=== PATIENT | male | born 1965 | race African-American/Black ===

== ENCOUNTER 2024-08-14 02:11 | Inpatient (IN) | payer BC, MEDICAID ==
[2024-08-14] VITALS (9 sets, daily range): BP systolic 140–147; BP diastolic 87–89; PULSE 65–91; RESP 18–22; TEMP 97.8–98.1; O2SAT 96–98
[~2024-08-14] VITALS: Ht 177.8 cm; Wt 96.8 kg
--- NOTE | 2024-08-14 02:48 | ED.PDOC ---
HPI Comments 58-year-old male came ER for chest pains. Patient has history of hypertension and diabetes. States he has been having intermittent episodes of headaches for the past few days, accompanied by fluctuating blood pressure levels. 30 minutes prior to arrival, she started having left sided chest pains, pressure, radiating to his left arm. With his blood pressure was elevated at 175/106 mm Hg, to the emergency room. Upon arrival blood pressure went down to 155/85 mmHg Chief Complaint: Chest Pain Time Seen by MD: 02:46 Reviewed Notes: Nurses Notes Allergies: Coded Allergies: No Known Drug Allergy (Verified Allergy, Unknown, 08/14/24) Information Source: Patient Mode of Arrival: Ambulatory Severity: Moderate Timing: Days Duration: Intermittent Prehospital treatment: None Location: Chest (L) Radiation: Arm (L) Quality: Pressure Onset: With Light Exertion Cardiac Risk Factors: HTN, Diabetes PE Risk Factors: None History of: Similar pain in past Associated Signs and Symptoms: Other (headaches) Vital Signs Vital Signs Date Time Temp Pulse Resp B/P (MAP) Pulse Ox O2 Delivery O2 Flow Rate FiO2 08/14/24 05:37 97.8 73 14 139/91 (107) 97 97.8 08/14/24 05:37 Room Air* 0 21 Physical Exam General: Awake, alert and oriented. No acute distress. Skin: Skin in warm, dry and intact. Appropriate color for ethnicity. Nailbeds pink with no cyanosis. HEENT: The head is normocephalic and atraumatic. Conjunctivae are clear without exudates or hemorrhage. Sclera is non-icteric. EOM are intact. No signs of n ystagmus. Eyelids are normal in appearance without swelling or lesions. Oral mucosa is pink and moist Neck: The neck is supple with normal range of motion. No JVD. Cardiac: Heart rate and rhythm are normal. No murmurs, gallops, or rubs are auscultated. Radial pulses equal bilaterally. Respiratory: No signs of respiratory distress. Lung sounds are clear in all lobes bilaterally without rales, ronchi, or wheezes. Abdominal: Abdomen is soft, non-tender without distention. Bowel sounds are present and normoactive in all four quadrants. Extremities: Upper and lower extremities are atraumatic in appearance without deformity or edema. Right great toe erythematous and swollen. Neurological: The patient is awake, alert and oriented to person, place, and daphne e with normal speech. Speech is clear. There is no facial asymmetry. Psychiatric: Appropriate mood and affect. Good judgement and insight. No visual or auditory hallucinations. Review of Systems REVIEW OF SYSTEMS: No fever, no chills, or fatigue HEENT: No sore throat, no earache, no congestion, no neck pain. Cardiac: (+) chest pain. No palpitations. Lungs: No shortness of breath, no cough. GI: No nausea, no vomiting, no diarrhea, no constipation, no abdominal pain : No dysuria, frequency, or urgency. No hematuria. Musculoskeletal: No joint pain , no joint swelling, no extremity edema. Skin: No rash, no itching. Neuro: No headache, no dizziness, no weakness Past Medical History PAST MEDICAL HISTORY: DM, HTN Surgical History: Denies all surgeries Family History Family History: Reviewed,noncontributory to illness Social History Smoker: Non-Smoker Alcohol: Denies ETOH Use Drugs: Denies Drug Use Lives In: Home Was a procedure done? Was a procedure done?: No CP Differential Dx Differential Diagnosis: Angina, Anxiety / Panic Attack Differential Diagnosis: Angina, Chest Wall Pain, Costochondritis, Esophageal reflux/spasm, Gastritis, Myocardial Infarction X-Ray, Labs, Meds, VS Vital Signs Date Time Temp Pulse Resp B/P (MAP) Pulse Ox O2 Delivery O2 Flow Rate FiO2 08/14/24 05:37 97.8 73 14 139/91 (107) 97 97.8 08/14/24 05:37 97 Room Air* 0 21 08/14/24 04:57 98.7 78 16 134/91 (105) 98 98.7 08/14/24 03:02 97.8 87 18 158/85 (109) 97 97.8 08/14/24 03:02 87 18 97 Room Air 08/14/24 02:31 97.8 87 18 158/85 (109) 87 Lab Test 08/14/24 05:40 08/14/24 03:35 08/14/24 02:42 Range/Units Troponin I High Sensitivity Pending 95 *H 91 *H </=54 ng/L White Blood Count 4.5 4.4-10.8 10^3/uL Red Blood Count 4.80 4.5-5.90 10^6/uL Hemoglobin 14.3 13.5-17.5 g/dL Hematocrit 42.7 41.0-53.0 % Mean Corpuscular Volume 89.0 80.0-100.0 fL Mean Corpuscular Hemoglobin 29.8 28.0-32.0 pg Mean Corpuscular Hemoglobin Concent 33.4 32.0-36.0 g/dL Red Cell Distribution Width 15.7 H 11.8-14.3 % Platelet Count 210 140-450 10^3/uL Mean Platelet Volume 10.1 6.9-10.8 fL Neutrophils (%) (Auto) 44.1 37.0-80.0 % Lymphocytes (%) (Auto) 38.5 10.0-50.0 % Monocytes (%) (Auto) 10.1 0.0-12.0 % Eosinophils (%) (Auto) 6.4 0.0-7.0 % Basophils (%) (Auto) 0.9 0.0-2.0 % Neutrophils # (Auto) 2.0 1.6-8.6 10 ^3/uL Lymphocytes # (Auto) 1.7 0.4-5.4 10 ^3/uL Monocytes # (Auto) 0.4 0-1.3 10 ^3/uL Eosinophils # (Auto) 0.3 0-0.8 10 ^3/uL Basophils # (Auto) 0 0-0.2 10 ^3/uL Nucleated Red Blood Cells 0.1 % Sodium Level 137 136-145 mmol/L Potassium Level 3.7 3.5-5.1 mmol/L Chloride Level 104 98-107 mmol/L Carbon Dioxide Level 28 20-31 mmol/L Anion Gap 5 5-15 Blood Urea Nitrogen 19 9-23 mg/dL Creatinine 1.63 H 0.700-1.30 mg/dL Glomerular Filtration Rate Calc 48 >90 mL/min BUN/Creatinine Ratio 11.7 10.0-20.0 Serum Glucose 121 H 74-106 mg/dL Calcium Level 9.8 8.7-10.4 mg/dL Total Bilirubin 0.4 0.2-1.0 mg/dL Aspartate Amino Transferase (AST) 25 13-40 U/L Alanine Aminotransferase (ALT) 23 7-40 U/L Alkaline Phosphatase 135 H 46-116 U/L Total Protein 7.9 5.7-8.2 g/dL Albumin 4.6 3.2-4.8 g/dL Current Medications Medications (Trade) Dose Ordered Sig/Natalie Route Start Time Stop Time Status Last Admin Ceftriaxone Sodium 50 ml @ 100 mls/hr ONCE ONCE IV 08/14/24 05:15 08/14/24 05:44 DC 08/14/24 05:22 Time of 1ST Reevaluation: 02:39 Reevaluation 1ST: Unchanged Patient Education/Counseling: Diagnosis, Treatment Family Education/Counseling: No Family Present Departure 1 Departure Time of Disposition: 05:53 Impression: Primary Impression: Chest pain Additional Impressions: Elevated troponin Cellulitis of right foot Disposition: ADMITTED INPATIENT Condition: Stable Comments 58-year-old male who presents to the emergency department with chest pain. At troponin mildly elevated. Patient has a history of diabetes, right great toe cellulitis noted. Antibiotics initiated. Patient admitted for further treatment, evaluation and monitoring. Extensive evaluation was performed in attempt to identify or rule out: (See differential diagnosis section) The following tests were ordered, and results were reviewed by me: (See diagnostic results section) The following test were independently interpreted by me: EKG, foot x-ray I reviewed and agreed with the following test results read by other providers: Foot x-ray I reviewed the following notes from the pt's past medical encounters: (None available at this time) Additional information was gathered from interviewing the following independent historians: N/A Discussion of management or test interpretation with external physician/other qualified health palliative care nurse: N/A Addressed an acute or chronic illness that poses a threat to life or bodily function: Chest pain Decision regarding hospitalization or escalation of hospital level of care: Risk and benefits of admission for further treatment of patient's condition was considered. Due to patient's current clinical condition, high risk of decline and poor outcome if discharged and need for further inpatient management and monitoring, patient will be admitted to the hospital. Critical Care Note Critical Care Time?: No Stability Stability form required: No Heart Score Heart Score: Heart Score Response (Comments) Value History Moderate Suspicious 1 EKG Repolarization Disturb 1 Age >65 2 Risk Factors 1 or 2 risk factors 1 Troponin >3 x's Normal limit 2 Total 7 I personally scribed for ABIMBOLA LUJAN MD ([email or web address]) on 08/14/24 at 02:48. Electronically submitted by David Glover ([facility]). I personally scribed for ABIMBOLA LUJAN MD ([email or web address]) on 08/14/24 at 05:26. Electronically submitted by David Glover ([email or web address]). ABIMBOLA LUJAN MD Aug 14, 2024 02:48
[2024-08-14 03:26] LABS: Alanine Aminotransferase 23 U/L (7-40); Albumin 4.6 g/dL (3.2-4.8); Anion Gap 5 (5-15); Aspartate Aminotransferase 25 U/L (13-40); BUN/Creatinine Ratio 11.7 (10.0-20.0); Bilirubin, Total 0.4 mg/dL (0.2-1.0); Blood Urea Nitrogen 19 mg/dL (9-23); Calcium 9.8 mg/dL (8.7-10.4); Carbon Dioxide 28 mmol/L (20-31); Chloride 104 mmol/L (98-107); Potassium 3.7 mmol/L (3.5-5.1); Sodium 137 mmol/L (136-145); Total Protein 7.9 g/dL (5.7-8.2)
[2024-08-14 03:29] LABS: Alkaline Phosphatase 135 U/L (46-116); Glucose 121 mg/dL (74-106)
[2024-08-14 03:32] LABS: Basophils # (auto) 0 10 ^3/uL (0-0.2); Basophils % (auto) 0.9 % (0.0-2.0); Eosinophils # (auto) 0.3 10 ^3/uL (0-0.8); Eosinophils % (auto) 6.4 % (0.0-7.0); Hematocrit 42.7 % (41.0-53.0); Hemoglobin 14.3 g/dL (13.5-17.5); Lymphocytes # (auto) 1.7 10 ^3/uL (0.4-5.4); Lymphocytes % (auto) 38.5 % (10.0-50.0); Mean Corpuscular Hemoglobin 29.8 pg (28.0-32.0); Mean Corpuscular Hgb Conc. 33.4 g/dL (32.0-36.0); Monocytes # (auto) 0.4 10 ^3/uL (0-1.3); Monocytes % (auto) 10.1 % (0.0-12.0); Neutrophils % (auto) 44.1 % (37.0-80.0); Nucleated Red Blood Cells % 0.1 %; Platelet Count (auto) 210 10^3/uL (140-450); Red Cell Distribution Width 15.7 % (11.8-14.3); White Blood Cell 4.5 10^3/uL (4.4-10.8)
[2024-08-14] MEDS: IOHEXOL 350 MG/ML 100ML IJ ONE (03:36)
--- NOTE | 2024-08-14 03:59 | DVH ---
Examination: RTOE1 CLINICAL INDICATION: Redness, swelling. COMPARISON: None. TECHNIQUE: Ap and lateral views of right foot were performed. FINDINGS: The bones forming the tibiotalar, talonavicular, calcaneocuboidal, subtarsal, inter-tarsal, tarsometa tarsal and metatarsophalangeal joints reveal normal alignment. Bones reveal normal density. No focal lytic or sclerotic lesion is detected in the visualized bones. There is no evidence of fracture or dislocation There is no abnormal periosteal reaction or soft tissue component. IMPRESSION: No significant abnormality is detected. Electronically Signed 08/14/2024 03:57 Eddie Oliveros
--- NOTE | 2024-08-14 04:32 | DVH ---
INDICATION: Chest Pain r/o aortic dissection TECHNIQUE: Multidetector CTA of the chest was performed of the chest with 100 cc of intravenous contr ast. Aortic dissection protocol was utilized using a bolus-tracking Axial, coronal and sagittal mult iplanar and MIP reformats were performed. Radiation Dose Information: CT Dose: Dose-length product is 1912.6 mGy*cm Comparison: None The dose indicators for CT are the volume Computed Tomography (CT) Dose Index (CTDIvol) and the Dose Length Product (DLP), and are measured in units of mGy and mGy-cm, respectively. These indicators are not patient dose, but values generated from the CT scanner acquisition factors. The report includes radiation exposure data for exposures received during this examination. Findings: The thoracic aorta appears normal in caliber and contour. No evidence of a dissection flap or aneurys mal dilatation. The airway appears patent. No mediastinal or hilar adenopathy. No pericardial or pleu ral effusion. The lungs appear clear. Visualized portions of the upper abdomen appear unremarkable. There is a right renal cyst. Small hi atal hernia. No suspicious osseous lesion. IMPRESSION: 1. No evidence of aortic dissection or acute finding. 2. Small hiatal hernia.
[2024-08-14] MEDS: cefTRIAXone 1GM/50ML D5W 50 ML IV ONE (05:22)
--- NOTE | 2024-08-14 07:06 | ECG ---
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
--- NOTE | 2024-08-14 07:23 | DVHHP2 ---
History of Present Illness Reason for Visit: Chest pain History of Present Illness Devon Moctezuma is a 58-year-old male with past medical history of hypertension, diabetes, and hernia repair who presents to the ED with chest, right arm numbness, and increased blood pressure x2 weeks. Patient reports that his medications is not helping him bring down his blood pressure. He also reports right arm numbness, left muscles were itching, and chest pain 3/10 that is intermittent and sharp radiates to his back in between his scapula. Patient reports that there are no aggravating or relieving factors. Patient also denies any recent sick contacts or recent travels. Patient also reports Patient reports that he is compliant with his medications. Patient denies smoking, drinking, and illicit drug use. Patient also denies shortness of breath, abdominal pain, nausea, vomiting, diarrhea, lightheadedness, dizziness, and weakness. Cardiovascular: HTN Endocrine: Diabetes Past Surgical History: Hernia Repair Family History: Cancer, Other (Mom with liver cancer Mets to the lung currently ) Smoke: No ALCOHOL: none Drugs: None Lives: Alone Domestic Violence: Neg Review of Systems Constitutional: No: Fever, Chills, Sweats, Weakness, Malaise, Other Eyes: No: Pain, Vision change, Conjunctivae inflammation, Eyelid inflammation, Other, Redness ENT: No: Ear pain, Ear discharge, Nose pain, Nose discharge, Nose congestion, Mouth pain, Mouth swelling, Throat pain, Throat swelling, Other Respiratory: No: Cough, Dry, Shortness of breath, SOB with excertion, Wheezing, Hemoptysis, Pleuritic Pain, Sputum, Wheezing, Other Cardiovascular: Chest Pain; No: Palpitations, Orthopnea, Paroxysmal Noc. Dyspnea, Edema, Lt Headedness, Other Gastrointestinal: No: Nausea, Vomiting, Abdominal Pain, Diarrhea, Constipation, Melena, Hematochezia, Other Genitourinary: No Dysuria, No Frequency, No Incontinence, No Hematuria, No Retention, No Other Musculoskeletal: other (Right arm numbness and left arm muscle twitching), arm pain; No: neck pain, shoulder pain, back pain, hand pain, leg pain, foot pain Skin: No: Rash, Lesions, Jaundice, Bruising, Other Neurological: No: Weakness, Numbness, Incoordination, Change in speech, Confusion, Seizures, Other Allergies: Coded Allergies: No Known Drug Allergy (Verified Allergy, Unknown, 08/14/24) Exam Vital Signs Vital Signs Date Time Temp Pulse Resp B/P (MAP) Pulse Ox O2 Delivery O2 Flow Rate FiO2 08/14/24 07:00 78 17 138/81 (100) 97 08/14/24 05:37 97.8 97.8 08/14/24 05:37 Room Air* 0 21 General Appearance: Alert, Oriented X3, Cooperative, No acute distress HEENT: Atraumatic, PERRLA, EOMI, Mucous membr. moist/pink Respiratory: Clear to auscultation, Normal air movement Cardiovascular: Regular rate, Normal S1, Normal S2, No murmurs Abdominal: Normal bowel sounds, Soft, No tenderness, No hepatospenomegaly Extremities: No cyanosis, Normal pulses Skin: No significant lesion Neuro: Normal gait, Normal speech, Strength at 5/5 X4 ext, Normal tone, Sensation intact Psych/Mental Status: Mental status NL, Mood NL Labs/Xrays Labs Test 08/14/24 05:40 08/14/24 02:42 Range/Units Troponin I High Sensitivity 92 *H </=54 ng/L White Blood Count 4.5 4.4-10.8 10^3/uL Red Blood Count 4.80 4.5-5.90 10^6/uL Hemoglobin 14.3 13.5-17.5 g/dL Hematocrit 42.7 41.0-53.0 % Mean Corpuscular Volume 89.0 80.0-100.0 fL Mean Corpuscular Hemoglobin 29.8 28.0-32.0 pg Mean Corpuscular Hemoglobin Concent 33.4 32.0-36.0 g/dL Red Cell Distribution Width 15.7 H 11.8-14.3 % Platelet Count 210 140-450 10^3/uL Mean Platelet Volume 10.1 6.9-10.8 fL Neutrophils (%) (Auto) 44.1 37.0-80.0 % Lymphocytes (%) (Auto) 38.5 10.0-50.0 % Monocytes (%) (Auto) 10.1 0.0-12.0 % Eosinophils (%) (Auto) 6.4 0.0-7.0 % Basophils (%) (Auto) 0.9 0.0-2.0 % Neutrophils # (Auto) 2.0 1.6-8.6 10 ^3/uL Lymphocytes # (Auto) 1.7 0.4-5.4 10 ^3/uL Monocytes # (Auto) 0.4 0-1.3 10 ^3/uL Eosinophils # (Auto) 0.3 0-0.8 10 ^3/uL Basophils # (Auto) 0 0-0.2 10 ^3/uL Nucleated Red Blood Cells 0.1 % Sodium Level 137 136-145 mmol/L Potassium Level 3.7 3.5-5.1 mmol/L Chloride Level 104 98-107 mmol/L Carbon Dioxide Level 28 20-31 mmol/L Anion Gap 5 5-15 Blood Urea Nitrogen 19 9-23 mg/dL Creatinine 1.63 H 0.700-1.30 mg/dL Glomerular Filtration Rate Calc 48 >90 mL/min BUN/Creatinine Ratio 11.7 10.0-20.0 Serum Glucose 121 H 74-106 mg/dL Calcium Level 9.8 8.7-10.4 mg/dL Total Bilirubin 0.4 0.2-1.0 mg/dL Aspartate Amino Transferase (AST) 25 13-40 U/L Alanine Aminotransferase (ALT) 23 7-40 U/L Alkaline Phosphatase 135 H 46-116 U/L Total Protein 7.9 5.7-8.2 g/dL Albumin 4.6 3.2-4.8 g/dL Examination: RTOE1 CLINICAL INDICATION: Redness, swelling. COMPARISON: None. TECHNIQUE: Ap and lateral views of right foot were performed. FINDINGS: The bones forming the tibiotalar, talonavicular, calcaneocuboidal, subtarsal, inter-tarsal, tarsometatarsal and metatarsophalangeal joints reveal normal alignment. Bones reveal normal density. No focal lytic or sclerotic lesion is detected in the visualized bones. There is no evidence of fracture or dislocation There is no abnormal periosteal reaction or soft tissue component. IMPRESSION: No significant abnormality is detected. INDICATION: Chest Pain r/o aortic dissection TECHNIQUE: Multidetector CTA of the chest was performed of the chest with 100 cc of intravenous contrast. Aortic dissection protocol was utilized using a bolus- tracking Axial, coronal and sagittal multiplanar and MIP reformats were performed. Radiation Dose Information: CT Dose: Dose-length product is 1912.6 mGy*cm Comparison: None The dose indicators for CT are the volume Computed Tomography (CT) Dose Index (CTDIvol) and the Dose Length Product (DLP), and are measured in units of mGy and mGy-cm, respectively. These indicators are not patient dose, but values generated from the CT scanner acquisition factors. The report includes radiation exposure data for exposures received during this examination. Findings: The thoracic aorta appears normal in caliber and contour. No evidence of a dissection flap or aneurysmal dilatation. The airway appears patent. No mediastinal or hilar adenopathy. No pericardial or pleural effusion. The lungs appear clear. Visualized portions of the upper abdomen appear unremarkable. There is a right renal cyst. Small hiatal hernia. No suspicious osseous lesion. IMPRESSION: 1. No evidence of aortic dissection or acute finding. 2. Small hiatal hernia. Assessment/Plan Assessment/Plan Assessment/Plan: Atypical chest pain r/o ACS JOSE on CKD 3 Right toe cellulitis ACS protocol Aspirin Statin GIANFRANCO UA CT A angio IV antibiotics-ceftriaxone Right toe x-ray EKG Troponins elevated Lipid TSH UDS Echo ordered Cardiology consult IV fluids Labs A.m. labs EKG a.m. Diabetes Hemoglobin A1c ISS and Accu-Cheks Chronic hypertension Continue home medications Small hiatal hernia Follow up outpatient with PCP FEN/PPX cardiac diet IV fluids DVT prophylaxis not indicated patient ambulating PUD prophylaxis not indicated patient no history of GERD or GI bleed Home medications reconciled discussed plan of care with patient and nurse Admit to tele Plan discussed with: Patient My Orders Orders - SERA SALINAS Procedure Category Date Status Time Ceftriaxone Ivpb PHA 08/14/24 Verified Rocephin 09:00 Admit ADMIT 08/14/24 Verified 07:17 Code Status CODE 08/14/24 Verified 07:17 Vital Signs SATYA 08/14/24 Verified 07:17 Cardiac DIET 08/14/24 Verified Diet-2gna,Lofat,Lochol Breakfast 0.9%Ns 1000 Ml PHA 08/14/24 Verified 07:30 Aspirin Tablet PHA 08/14/24 Verified 10:00 Date of Service: Aug 14, 2024 Billing Provider: SERA SALINAS Common Visit Codes: 38024-EYGUSDY INP/OBS CARE (HIGH) SERA SALINAS Aug 14, 2024 07:23
[2024-08-14] MEDS ORDERED: MORPHINE SULFATE INJ 2 MG/ml SYRG IV PRN (07:30)
[2024-08-14] MEDS ORDERED: NITROGLYCERIN 0.4 MG SL TAB SL PRN (07:30)
[2024-08-14] MEDS ORDERED: ONDANSETRON HCL 4 MG/2 ML VIAL IV PRN (07:30)
[2024-08-14] MEDS: SODIUM CHLORIDE 0.9% 1,000 ML IV SCH (07:45)
[2024-08-14] MEDS ORDERED: DEXTROSE (50%) 50ML SYRG IV PRN (08:30)
[2024-08-14 08:40] LABS: Amphetamine Screen, Urine Neg (NEGATIVE); Barbiturate Scree,Urine Neg (NEGATIVE); Benzodiazephine Screen, Urine Neg (NEGATIVE); Cannabinoid Screen, Urine Neg (NEGATIVE); Cocaine Screen, Urine Neg (NEGATIVE); Opiate Scree,Urine Neg (NEGATIVE); Phencyclidine Screen, Urine Neg (NEGATIVE)
[2024-08-14] MEDS: ASPirin 81 mg TAB PO SCH (10:11)
[2024-08-14] MEDS: InsuLIN REG 1unit/0.01ml Soln (100units/ml) SC SCH (11:30)
[2024-08-14] MEDS: ACCU-CHEK COMFORT CURVE STRIP VI SCH (11:40)
[2024-08-14] MEDS ORDERED: LATA0.008 EACHEYE (14:18)
[2024-08-14] MEDS ORDERED: KETO2CRE4 TOP (14:18)
[2024-08-14] MEDS ORDERED: CHLO50TA PO (14:18)
[2024-08-14] MEDS ORDERED: LOSA-535 PO (14:18)
[2024-08-14] MEDS ORDERED: FINE10TA PO (14:18)
[2024-08-14] MEDS ORDERED: METF-370 PO (14:18)
[2024-08-14] MEDS ORDERED: FENO67CA16 PO (14:18)
[2024-08-14] MEDS ORDERED: FLUT50SP NAS (14:18)
[2024-08-14] MEDS ORDERED: NAP500T PO (14:18)
[2024-08-14] MEDS ORDERED: AMLO1TAB23 PO (14:18)
[2024-08-14] MEDS ORDERED: GLUC1TES SC (14:18)
[2024-08-14] MEDS ORDERED: GABA-1250 PO (14:18)
[2024-08-14] MEDS ORDERED: ATOR20TA50 PO (14:18)
[2024-08-14] MEDS ORDERED: [UNRECOGNIZED DRUG - SUPPLY] SC (14:18)
[2024-08-14] MEDS ORDERED: ASPI81CH49 PO (14:18)
[2024-08-14] MEDS ORDERED: CARV3.1240 PO (14:18)
--- NOTE | 2024-08-14 21:09 | DVHSR ---
APPROVED REPORT EXAM: Two-dimensional and M-mode echocardiogram with Doppler and color Doppler. Blood Pressure: 138/81 mmHg INDICATION Chest Pain RISK FACTORS Height: 5'10, Weight: 215 DIMENSIONS LVDd3.9 (3.8-5.7cm)LA (2D)3.8 (1.9-4.0cm)Aortic Root3.4 (2.0-3.7cm) LVDs2.8 (2.5-4.0cm)LA (MM) (1.9-4.0cm)Aortic Cusp Exc1.9 (1.5-2.0cm) EF (%) 55.0 (55-70%)Rt. Atrium3.9 (1.9-4.0cm)Asc. Aorta3.2 cm IVSd1.0 (0.7-1.1cm)RV (D) (1.8-2.4cm) PWd1.1 (0.7-1.1cm) Mitral Valve MitralMitral Stenosis E wave0.71m/sMV Mean GR.mmHg A wave0.93m/sMV Peak GR.mmHg E/A ratio0.82D MVAcm2 DECEL [id number] 1/2 Timems Aortic Valve Aortic ValveAortic Stenosis V10.99m/Chris Mean GR.3mmHg V21.16m/Chris Peak GR.5mmHg LVOT Diameter2.1 (1.8-2.4cm)Doppler AVA2.95cm2 Pulmonic Valve V21.16m/s Tricuspid Valve TR Velocity2.49m/s [id number] Conclusion MODERATE DEGREE LVH AND MODERATE DEGREE LV DIASTOLIC DYSFUNCTION LV EJECTION FRACTION IS 65% NORMAL VALVES NORMAL RV FUNCTION NO EFFUSION RVSP IS NORMAL AND IS 28 MM OF HG
[2024-08-14] MEDS: ATORVASTATIN 20 MG TAB PO SCH (22:15)
[2024-08-15] VITALS (8 sets, daily range): BP systolic 122–150; BP diastolic 75–86; PULSE 64–73; RESP 14–22; TEMP 97.6–98.3; O2SAT 95–98
[2024-08-15] MEDS: ACETAMINOPHEN 325 MG TAB PO PRN (06:14)
--- NOTE | 2024-08-15 07:17 | ECG ---
[facility] Test Date: 2024-08-14 Test Time: 02:37:51 Pat Name: CHICHO WOLFE Department: ER Room: 0270T B Gender: M Rn Discharge: PH : 1965 Requested By: ABIMBOLA LUJAN Order Number: [id number] Reading MD: Vaughn Elena Measurements Intervals [place] Rate: 82 P: 50 UT: 246 QRS: -51 QRSD: 119 T: 90 QT: 362 QTc: 423 Interpretive Statements Sinus rhythm Prolonged UT interval Incomplete left bundle branch block Left ventricular hypertrophy ST elevation, consider inferior injury Electronically Signed On 08-22-2024 14:37:36 PST by Vaughn Elena Please click the below link to view image of tracing.
--- NOTE | 2024-08-15 07:17 | ECG ---
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
[2024-08-15] MEDS: cefTRIAXone 1GM/50ML D5W 50 ML IV SCH (09:33)
[2024-08-15 10:16] LABS: Basophils # (auto) 0 10 ^3/uL (0-0.2); Basophils % (auto) 0.4 % (0.0-2.0); Eosinophils # (auto) 0.3 10 ^3/uL (0-0.8); Eosinophils % (auto) 7.1 % (0.0-7.0); Hematocrit 44.7 % (41.0-53.0); Hemoglobin 14.8 g/dL (13.5-17.5); Lymphocytes # (auto) 1.5 10 ^3/uL (0.4-5.4); Lymphocytes % (auto) 30.9 % (10.0-50.0); Mean Corpuscular Hemoglobin 29.9 pg (28.0-32.0); Mean Corpuscular Hgb Conc. 33.1 g/dL (32.0-36.0); Mean Corpuscular Volume 90.2 fL (80.0-100.0); Monocytes # (auto) 0.5 10 ^3/uL (0-1.3); Monocytes % (auto) 10.8 % (0.0-12.0); Neutrophils # (auto) 2.4 10 ^3/uL (1.6-8.6); Neutrophils % (auto) 50.8 % (37.0-80.0); Platelet Count (auto) 205 10^3/uL (140-450); Red Blood Cells 4.95 10^6/uL (4.5-5.90); Red Cell Distribution Width 15.8 % (11.8-14.3); White Blood Cell 4.8 10^3/uL (4.4-10.8)
[2024-08-15 10:30] LABS: Alanine Aminotransferase 24 U/L (7-40); Albumin 4.4 g/dL (3.2-4.8); Alkaline Phosphatase 74 U/L (46-116); Anion Gap 6 (5-15); Aspartate Aminotransferase 20 U/L (13-40); BUN/Creatinine Ratio 8.5 (10.0-20.0); Bilirubin, Total 0.6 mg/dL (0.2-1.0); Blood Urea Nitrogen 14 mg/dL (9-23); Calcium 9.9 mg/dL (8.7-10.4); Carbon Dioxide 28 mmol/L (20-31); Chloride 106 mmol/L (98-107); Sodium 140 mmol/L (136-145)
[2024-08-15 10:31] LABS: Total Protein 7.7 g/dL (5.7-8.2)
[2024-08-15 10:34] LABS: Glucose 138 mg/dL (74-106); Potassium 3.5 mmol/L (3.5-5.1)
--- NOTE | 2024-08-15 12:53 | DVHPN2 ---
Subjective Patient denies any chest pain at this time. Reviewed: Care Plan, H&P, Labs, Medications Changes from previous H/P or p: No Changes General: Per HPI Eyes: No Pain, No Vision change, No Conjunctivae inflammation, No Eyelid inflammation, No Other, No Redness ENT: No Ear pain, No Ear discharge, No Nose pain, No Nose discharge, No Nose congestion, No Mouth pain, No Mouth swelling, No Throat pain, No Throat swelling, No Other Cardiovascular: Chest Pain; No Palpitations, No Orthopnea, No Paroxysmal Noc. Dyspnea, No Edema, No Lt Headedness, No Other Respiratory: No Cough, No Dry, No Shortness of breath, No SOB with excertion, No Wheezing, No Hemoptysis, No Pleuritic Pain, No Sputum, No Other Gastrointestinal: No Nausea, No Vomiting, No Abdominal Pain, No Diarrhea, No Constipation, No Melena, No Hematochezia, No Other Genitourinary: No Dysuria, No Frequency, No Incontinence, No Hematuria, No Retention, No Other Musculoskeletal: other (Right arm numbness and left arm muscle twitching); No neck pain, No shoulder pain; arm pain; No back pain, No hand pain, No leg pain, No foot pain Skin: No Rash, No Lesions, No Jaundice, No Bruising, No Other Objective Vitals Vital Signs Date Time Temp Pulse Resp B/P (MAP) Pulse Ox O2 Delivery O2 Flow Rate FiO2 08/15/24 12:36 98.3 64 16 140/75 (96) 96 98.3 08/15/24 08:00 Room Air* 0 21 Intake/Output Intake and Output 08/15/24 07:00 Intake Total 1822.5 ml Output Total 200 ml Balance 1622.5 ml Intake Oral 735 ml IV Total 1087.5 ml Output Urine Total 200 ml # Voids 5 # Bowel Movements 1 General Appearance: Alert, Oriented X3, Cooperative, No acute distress Cardiovascular: Normal S1, Normal S2 Abdomen: Normal bowel sounds, Soft, No tenderness Musculoskeletal: Normal sensory function, Normal motor function Neuro: Normal gait, Normal speech Psych/Mental Status: Mental status NL, Mood NL Medications Current Medications Medications Dose Ordered Sig/Natalie Route Start Time Stop Time Status Last Admin Dose Admin Sodium Chloride 1,000 ml @ 75 mls/hr [id number] IV 08/14/24 07:30 08/15/24 09:44 75 MLS/HR Aspirin 81 mg DAILY PO 08/14/24 10:00 08/15/24 09:44 81 MG Atorvastatin Calcium 40 mg HS PO 08/14/24 22:00 08/14/24 22:15 40 MG Acetaminophen 650 mg Q6HP PRN PO 08/14/24 07:30 08/15/24 06:14 650 MG Ondansetron HCl 4 mg Q4HP PRN IV 08/14/24 07:30 Nitroglycerin 0.4 mg Q5MINP PRN SL 08/14/24 07:30 Morphine Sulfate 2 mg Q30M PRN IV 08/14/24 07:30 Diagnostic Test (Pha) 1 strip ACHS 08/14/24 11:30 08/15/24 11:32 1 STRIP Insulin Human Regular ACHS SC 08/14/24 11:30 Dextrose 50 ml UD PRN IV 08/14/24 08:30 Metoprolol Succinate 25 mg DAILY PO 08/16/24 10:00 UNV Laboratory Results Laboratory Tests 08/15/24 09:37 Chemistry Test 08/15/24 09:37 Albumin 4.4 g/dL (3.2-4.8) Calcium Level 9.9 mg/dL (8.7-10.4) Total Protein 7.7 g/dL (5.7-8.2) LFT Test 08/15/24 09:37 Alanine Aminotransferase (ALT) 24 U/L (7-40) Alkaline Phosphatase 74 U/L (46-116) Aspartate Amino Transferase (AST) 20 U/L (13-40) Total Bilirubin 0.6 mg/dL (0.2-1.0) Labs and/or images reviewed: Labs reviewed by me, Image(s) reviewed by me Assessment/Plan Assessment/Plan Impression: -rule out acute coronary syndrome -diabetes mellitus -CKD stage IIIA -accelerated hypertension -obesity Plan: -given patient's chest pain that radiates to his arms, cardiology consultation will be placed. Troponins x3 were 90, equivocal. Echocardiogram reviewed. -regular insulin sliding scale -start ACS protocol with aspirin and beta cameron -patient reports having a stress test either in May or June of 2024. Results unknown. -further course of care per Cardiology recommendations Total time spent with patient discussing and formulating plan of care: 35 minutes. This medical document was created using an electronic medical record system with [employer] dictation system. Although this document has been carefully reviewed, there may still be some phonetic and typographical errors. These areas are purely typographical due to imperfections of the software programs, and do not reflect any compromise in the patient's medical care. Plan discussed with: Patient, Other (RN) My Orders Orders - REGINE PINON NP Procedure Category Date Status Time * Cardiology Consult CONS 08/15/24 Transmitted 11:49 Metoprolol Xl PHA 08/16/24 Logged Succinate (Toprol Xl) 10:00 Date of Service: Aug 15, 2024 Billing Provider: REGINE PINON NP Common Visit Codes: [id number] INP/OBS CARE(HIGH) REGINE PINON NP Aug 15, 2024 12:53
--- NOTE | 2024-08-15 13:31 | DVHINCON2 ---
Date Seen: Aug 15, 2024 Referring Physician Chele Reason for Consultation Chest Pain, Mild troponin elevation History of Present Illness 58-year-old male with PMH for HTN, HLD, diabetes , and CKD who presents to the hospital with chest pain and elevated blood pressure. Patient states he has been monitor his blood pressure and noted to be uncontrolled for last 2 weeks. Patient then started to have some and [place] with left-sided chest pain, sharp in nature, intermittent, associated with right arm numbness as well as feelings of pulsations down his left arm. Patient states at that time he checked his blood pressure and noted to be 176/88. Patient states that he recently underwent Ayaz stress test within last 2-3 months for which he was told it was normal. EKG reviewed shows normal sinus rhythm with no significant ST abnormalities. Upon evaluation in the ER patient noted to have blood pressure 158/85. Patient had troponins trending 91, 95, 92. CT chest done which was negative for any acute findings. Creatinine 1.65. Past Medical History HTN HLD Diabetes CKD Past Surgical History Denies previous cardiac surgeries Family History: Cerebrovascular accident (CVA) G8 FATHER FH: liver cancer G8 MOTHER Hypertension G8 FATHER Social History Denies alcohol, tobacco, or illicit drug use Allergies: Coded Allergies: No Known Drug Allergy (Verified Allergy, Unknown, 08/14/24) Home Meds Reported Medications Amlodipine Besylate (Amlodipine Besylate) 10 Mg Tab, 1 TAB PO DAILY 08/14/24 Aspirin (Aspirin) 81 Mg Chw, 1 TAB PO DAILY 08/14/24 Chlorthalidone (Chlorthalidone) 50 Mg Tab, 1 TAB PO DAILY 08/14/24 Carvedilol (Carvedilol) 3.125 Mg Tab, 1 TAB PO BID 08/14/24 Lancets (TRUEPLUS LANCETS 33G) 33 G Mis, SC DAILY for diabetes mellitus 08/14/24 Glucose Blood (True Metrix Self Monitori) 1 Elvie Elvie, STRIP SC DAILY for diabetes mellitus 08/14/24 Ketoconazole (Ketoconazole) 2 % Cre, 1 APPLIC TOP DAILY 08/14/24 Gabapentin (Gabapentin) 300 Mg Cap, 1 CAP PO DAILY 08/14/24 Losartan Potassium (Losartan Potassium) 100 Mg Tab, 1 TAB PO DAILY 08/14/24 Latanoprost (LATANOPROST) 0.005 % Iesha, 1 DROP EACHEYE 08/14/24 Fluticasone Propionate (Nasal) (Fluticasone Propionate) 50 Mcg/Act Spr, 1 SPRAY GUCCI DAILY 08/14/24 Finerenone (Kerendia) 10 Mg Tab, PO 08/14/24 Naproxen (NAPROSYN TABLET) 500 Mg Tb, PO 08/14/24 Atorvastatin Calcium (ATORVASTATIN CALCIUM) 20 Mg Tab, 1 TAB PO DAILY 08/14/24 Fenofibrate (Fenofibrate Micronized) 67 Mg Cap, 1 CAP PO DAILY 08/14/24 Metformin Hydrochloride (Metformin Hcl) 500 Mg Tab, 1 TAB PO BID 08/14/24 Current Medications Current Medications Medications (Trade) Dose Ordered Sig/Natalie Route PRN Reason Start Time Stop Time Status Last Admin Ceftriaxone Sodium 50 ml @ 100 mls/hr DAILY@09 IV 08/15/24 09:00 08/15/24 12:39 DC 08/15/24 09:33 Atorvastatin Calcium (Lipitor) 40 mg HS PO 08/14/24 22:00 08/14/24 22:15 Metoprolol Succinate (Toprol Xl) 25 mg DAILY PO 08/16/24 10:00 Review of Systems Constitutional: No: Fever, Chills, Sweats, Weakness, Malaise, Other Eyes: No: Pain, Vision change, Conjunctivae inflammation, Eyelid inflammation, Other, Redness ENT: No: Ear pain, Ear discharge, Nose pain, Nose discharge, Nose congestion, Mouth pain, Mouth swelling, Throat pain, Throat swelling, Other Respiratory: No: Cough, Dry, Shortness of breath, SOB with exertion, Wheezing, Hemoptysis, Pleuritic Pain, Sputum, Wheezing, Other Cardiovascular: ; No: Chest Pain Palpitations, Orthopnea, Paroxysmal Noc. Dyspnea, Edema, Lt Headedness, Other Gastrointestinal: No: Nausea, Vomiting, Abdominal Pain, Diarrhea, Constipation, Melena, Hematochezia, Other Genitourinary: No Dysuria, No Frequency, No Incontinence, No Hematuria, No Retention, No Other Musculoskeletal: neck pain; No: other, shoulder pain, arm pain, back pain, hand pain, leg pain, foot pain Skin: No: Rash, Lesions, Jaundice, Bruising, Other Neurological: Other (Dizziness, headache.); No: Weakness, Numbness, Incoordination, Change in speech, Confusion, Seizures Vital Signs Vital Signs Date Time Temp Pulse Resp B/P (MAP) Pulse Ox O2 Delivery O2 Flow Rate FiO2 08/15/24 12:36 98.3 64 16 140/75 (96) 96 98.3 08/15/24 08:00 Room Air* 0 21 Physical Exam General appearance: Patient is well-developed, well-nourished, in no acute distress. HEENT: Exam shows: Normocephalic, atraumatic, PERRLA, EOMI Neck: Supple, no bruits Chest: Equal chest excursion bilaterally. Breath sounds normal-no rales or wheezes. Heart: Rhythm: Regular rate; no murmur or gallop Abdomen: Exam shows: Soft, nontender, nondistended Musculoskeletal: No clubbing, no cyanosis, no lower extremity edema Dermatology: Skin warm, moist. Neurological: Exam shows: Alert and oriented x4, normal speech Available prior records, labs, EKG, rhythm strips reviewed and interpreted Labs/Diagnostic Data Labs Test 08/15/24 11:50 08/15/24 09:37 08/14/24 08:38 08/14/24 07:17 Range/Units POC Glucose 102 70-106 mg/dl White Blood Count 4.8 4.4-10.8 10^3/uL Red Blood Count 4.95 4.5-5.90 10^6/uL Hemoglobin 14.8 13.5-17.5 g/dL Hematocrit 44.7 41.0-53.0 % Mean Corpuscular Volume 90.2 80.0-100.0 fL Mean Corpuscular Hemoglobin 29.9 28.0-32.0 pg Mean Corpuscular Hemoglobin Concent 33.1 32.0-36.0 g/dL Red Cell Distribution Width 15.8 H 11.8-14.3 % Platelet Count 205 140-450 10^3/uL Mean Platelet Volume 9.9 6.9-10.8 fL Neutrophils (%) (Auto) 50.8 37.0-80.0 % Lymphocytes (%) (Auto) 30.9 10.0-50.0 % Monocytes (%) (Auto) 10.8 0.0-12.0 % Eosinophils (%) (Auto) 7.1 H 0.0-7.0 % Basophils (%) (Auto) 0.4 0.0-2.0 % Neutrophils # (Auto) 2.4 1.6-8.6 10 ^3/uL Lymphocytes # (Auto) 1.5 0.4-5.4 10 ^3/uL Monocytes # (Auto) 0.5 0-1.3 10 ^3/uL Eosinophils # (Auto) 0.3 0-0.8 10 ^3/uL Basophils # (Auto) 0 0-0.2 10 ^3/uL Nucleated Red Blood Cells 0.0 % Sodium Level 140 136-145 mmol/L Potassium Level 3.5 3.5-5.1 mmol/L Chloride Level 106 98-107 mmol/L Carbon Dioxide Level 28 20-31 mmol/L Anion Gap 6 5-15 Blood Urea Nitrogen 14 9-23 mg/dL Creatinine 1.65 H 0.700-1.30 mg/dL Glomerular Filtration Rate Calc 47 >90 mL/min BUN/Creatinine Ratio 8.5 L 10.0-20.0 Serum Glucose 138 H 74-106 mg/dL Calcium Level 9.9 8.7-10.4 mg/dL Total Bilirubin 0.6 0.2-1.0 mg/dL Aspartate Amino Transferase (AST) 20 13-40 U/L Alanine Aminotransferase (ALT) 24 7-40 U/L Alkaline Phosphatase 74 46-116 U/L Total Protein 7.7 5.7-8.2 g/dL Albumin 4.4 3.2-4.8 g/dL Hemoglobin A1c 6.2 H <5.7 % A1C Thyroid Stimulating Hormone (TSH) 2.08 0.55-4.78 uIU/mL Urine Opiates Screen Neg NEGATIVE Urine Fentanyl Screen Neg NEGATIVE Urine Barbiturates Screen Neg NEGATIVE Urine Phencyclidine Screen Neg NEGATIVE Urine Amphetamines Screen Neg NEGATIVE Urine Benzodiazepines Screen Neg NEGATIVE Urine Cocaine Screen Neg NEGATIVE Urine Cannabinoids Screen Neg NEGATIVE Test 08/14/24 05:40 Range/Units Troponin I High Sensitivity 92 *H </=54 ng/L Assessment Chest pain Mildly elevated troponins likely type 2 NV Uncontrolled HTN Diabetes CKD Mild coronary calcifications Plan/Recommendation * Troponins trending stable. EKG negative for acute ST abnormalities. Recent negative AYAZ stress test. Follow up echo with normal EF. Likely demand ischemia. Continue on aspirin and statin. * Restart home BP regimen, up titrate Coreg to 6.25 mg p.o. twice daily. Up titrate as tolerated. May restart on amlodipine as patient was previously taking. * Continue aspirin and statin upon discharge in setting of mild coronary calcifications on CT chest. * Echo with moderate degree LVH, diastolic dysfunction. LVEF 65%. No significant valvular structural abnormalities. Preserved RV function. Case Discussed with Dr Swift. Continue blood pressure control and management. Normal EF. Stable troponins. Likely type 2 NV. There is no further cardiac work-up indicated at this time. Patient advised if continues to have symptoms with controlled blood pressure recommend outpatient cardiology follow up for possible CT coronary angiogram, he will need Nephrology clearance. Thank you for allowing us to participate in this patient's care. Will sign off. Critical care, time spent: 40 minutes This medical document was created using an electronic medical record system with voice recognition software and computerized dictation system. Although this document has been carefully reviewed, there might still be some phonetic and typographical errors. Occasional wrong-word or ``sound-alike substitutions may have occurred due to the inherent limitations of voice recognition software. These areas are purely typographical due to imperfections of the software programs and do not reflect any compromise in the patient's medical care. Please read the chart carefully and recognize, using context, where these substitutions have occurred. Thank you for allowing me to participate in the management of this patient. The treatment plan was discussed with and agreed upon by patient/family including requesting consultants and ordering of imaging/procedures. Plan discussed with: Patient NYHA Physical activity limitations: NA Date of Service: Aug 15, 2024 Billing Provider: BEATRIZ MCGUIRE Cardiology Common Codes: [id number] INP/OBS CARE (High), [id number] CARE 30-74 MIN BEATRIZ MCGUIRE Aug 15, 2024 13:31
--- NOTE | 2024-08-15 16:28 | DVHDS2 ---
Discharge Summary Date of Admission Aug 14, 2024 at 07:17 Date of Discharge: Aug 15, 2024 Admitting Diagnosis Chest pain Labs/Diagnostic Data: Laboratory Results Test 08/15/24 14:45 08/15/24 11:50 08/15/24 09:37 08/14/24 08:38 Troponin I High Sensitivity 90 ng/L (</=54) POC Glucose 102 mg/dl (70-106) White Blood Count 4.8 10^3/uL (4.4-10.8) Red Blood Count 4.95 10^6/uL (4.5-5.90) Hemoglobin 14.8 g/dL (13.5-17.5) Hematocrit 44.7 % (41.0-53.0) Mean Corpuscular Volume 90.2 fL (80.0-100.0) Mean Corpuscular Hemoglobin 29.9 pg (28.0-32.0) Mean Corpuscular Hemoglobin Concent 33.1 g/dL (32.0-36.0) Red Cell Distribution Width 15.8 % (11.8-14.3) Platelet Count 205 10^3/uL (140-450) Mean Platelet Volume 9.9 fL (6.9-10.8) Neutrophils (%) (Auto) 50.8 % (37.0-80.0) Lymphocytes (%) (Auto) 30.9 % (10.0-50.0) Monocytes (%) (Auto) 10.8 % (0.0-12.0) Eosinophils (%) (Auto) 7.1 % (0.0-7.0) Basophils (%) (Auto) 0.4 % (0.0-2.0) Neutrophils # (Auto) 2.4 10 ^3/uL (1.6-8.6) Lymphocytes # (Auto) 1.5 10 ^3/uL (0.4-5.4) Monocytes # (Auto) 0.5 10 ^3/uL (0-1.3) Eosinophils # (Auto) 0.3 10 ^3/uL (0-0.8) Basophils # (Auto) 0 10 ^3/uL (0-0.2) Nucleated Red Blood Cells 0.0 % Sodium Level 140 mmol/L (136-145) Potassium Level 3.5 mmol/L (3.5-5.1) Chloride Level 106 mmol/L (98-107) Carbon Dioxide Level 28 mmol/L (20-31) Anion Gap 6 (5-15) Blood Urea Nitrogen 14 mg/dL (9-23) Creatinine 1.65 mg/dL (0.700-1.30) Glomerular Filtration Rate Calc 47 mL/min (>90) BUN/Creatinine Ratio 8.5 (10.0-20.0) Serum Glucose 138 mg/dL (74-106) Calcium Level 9.9 mg/dL (8.7-10.4) Total Bilirubin 0.6 mg/dL (0.2-1.0) Aspartate Amino Transferase (AST) 20 U/L (13-40) Alanine Aminotransferase (ALT) 24 U/L (7-40) Alkaline Phosphatase 74 U/L (46-116) Total Protein 7.7 g/dL (5.7-8.2) Albumin 4.4 g/dL (3.2-4.8) Hemoglobin A1c 6.2 % A1C (<5.7) Test 08/14/24 07:17 Thyroid Stimulating Hormone (TSH) 2.08 uIU/mL (0.55-4.78) Urine Opiates Screen Neg (NEGATIVE) Urine Fentanyl Screen Neg (NEGATIVE) Urine Barbiturates Screen Neg (NEGATIVE) Urine Phencyclidine Screen Neg (NEGATIVE) Urine Amphetamines Screen Neg (NEGATIVE) Urine Benzodiazepines Screen Neg (NEGATIVE) Urine Cocaine Screen Neg (NEGATIVE) Urine Cannabinoids Screen Neg (NEGATIVE) Other Laboratory Tests 08/15/24 09:37 Brief Hx & Hospital Course: History of Present Illness Devon Moctezuma is a 58-year-old male with past medical history of hypertension, diabetes, and hernia repair who presents to the ED with chest, right arm numbness, and increased blood pressure x2 weeks. Patient reports that his medications is not helping him bring down his blood pressure. He also reports right arm numbness, left muscles were itching, and chest pain 3/10 that is intermittent and sharp radiates to his back in between his scapula. Patient reports that there are no aggravating or relieving factors. Patient also denies any recent sick contacts or recent travels. Patient also reports Patient reports that he is compliant with his medications. Patient denies smoking, drinking, and illicit drug use. Patient also denies shortness of breath, abdominal pain, nausea, vomiting, diarrhea, lightheadedness, dizziness, and weakness. Course of hospitalization: Cardiology consultation was obtained. Further discussion was made with the patient regarding his previous workup by Cardiology. Patient states that he had a stress test in May of June of 2024. At this time, he has been cleared by Cardiology with all troponins being equivocal. Patient denies any chest pain at this time. He was instructed to continue all previous home medications and follow up with his PCP and technical training instructor for titration of his medications. Patient was agreeable with discharge plan. All questions answered. Physical examination General: Alert and Oriented x3. No acute distress. Well-nourished. Obese Eyes: EOMI. Anicteric. HENT: Moist mucous membranes. Lungs: Clear to auscultation bilaterally. No accessory muscle use. Cardiovascular: Regular rate and rhythm. No murmur. No JVD. Abdomen: Soft, non-tender and non-distended. No palpable masses. Extremities: No edema. Non-tender. Skin: No rashes or lesions. Warm. Neurologic: No focal neurological deficits. CN II-XII grossly intact, but not individually tested. Psychiatric: Cooperative. Appropriate mood and affect. Total time spent with patient discussing and formulating plan of care: 35 minutes. This medical document was created using an electronic medical record system with [employer] dictation system. Although this document has been carefully reviewed, there may still be some phonetic and typographical errors. These areas are purely typographical due to imperfections of the software programs, and do not reflect any compromise in the patient's medical care. Consults/Reason for consult Cardiology: Rule out ACS Condition at Discharge: Fair Final Diagnosis/Problems List NSTEMI type 2 secondary to accelerated hypertension Secondary Diagnosis: -ruled out acute coronary syndrome -diabetes mellitus -CKD stage IIIA -accelerated hypertension -obesity -right toe cellulitis Discharge Disposition: Home Discharge Instruct/Medications Diet: Cardiac 2g Na,low cholest Activity: No Restrictions, As Tolerated Follow Up/Referral: Follow up with PCP in Follow up with Cardiology in next 1-2 weeks Medications: Aspirin daily Continue all previous home medications Augmentin 875 mg b.i.d. x5 days 36 Discharge Statement: "Patient was advised to return to the ER or call 911 if any headaches, dizziness, shortness of breath, chest pain, abdominal pain, bleeding, fevers, or worsening of medical condition. Patient was counseled about treatment plan, medications, possible side effects, patientverbalized understanding. All questions were answered to the best of my ability. This discharge took greater then 30 minutes in planning, reviewing documentation, counseling the patient, and discussing with other team members." ASSESSMENT ASSESSMENT Assessment NSTEMI type 2 secondary to accelerated hypertension Date of Service: Aug 15, 2024 Billing Provider: REGINE PINON NP Common Visit Codes: [id number] DISCH DAY >30min REGINE PINON NP Aug 15, 2024 16:28
[2024-08-15] MEDS ORDERED: AUG875T PO (16:30)
--- NOTE | 2024-08-15 22:21 | DVHINCON2 ---
Date Seen: Aug 15, 2024 Referring Physician Chele Reason for Consultation Chest Pain, Mild troponin elevation History of Present Illness This 58-year-old male with a PMH of HTN, HLD, diabetes , and CKD who presents to the hospital with chest pain and elevated blood pressure. Patient states he has been monitoring his blood pressure and noted to be uncontrolled for last 2 weeks. Patient then started to have some left-sided chest pain, sharp in nature, intermittent, associated with right arm numbness as well as feelings of pulsations down his left arm. Patient states at that time he checked his blood pressure and noted to be 176/88. Patient states that he recently underwent Ayaz stress test within last 2-3 months for which he was told it was normal. EKG reviewed shows normal sinus rhythm with no significant ST abnormalities. Upon evaluation in the ER patient noted to have blood pressure 158/85. Patient had troponins trending 91, 95, 92. CT chest done which was negative for any acute findings. Creatinine 1.65. Patient was admitted to the hospital. I am asked to consult on this patient. 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/15/24 Reported Medications Amlodipine Besylate (Amlodipine Besylate) 10 Mg Tab, 1 TAB PO DAILY 08/14/24 Aspirin (Aspirin) 81 Mg Chw, 1 TAB PO DAILY 08/14/24 Chlorthalidone (Chlorthalidone) 50 Mg Tab, 1 TAB PO DAILY 08/14/24 Carvedilol (Carvedilol) 3.125 Mg Tab, 1 TAB PO BID 08/14/24 Lancets (TRUEPLUS LANCETS 33G) 33 G Mis, SC DAILY for diabetes mellitus 08/14/24 Glucose Blood (True Metrix Self Monitori) 1 Elvie Elvie, STRIP SC DAILY for diabetes mellitus 08/14/24 Ketoconazole (Ketoconazole) 2 % Cre, 1 APPLIC TOP DAILY 08/14/24 Gabapentin (Gabapentin) 300 Mg Cap, 1 CAP PO DAILY 08/14/24 Losartan Potassium (Losartan Potassium) 100 Mg Tab, 1 TAB PO DAILY 08/14/24 Latanoprost (LATANOPROST) 0.005 % Iesha, 1 DROP EACHEYE 08/14/24 Fluticasone Propionate (Nasal) (Fluticasone Propionate) 50 Mcg/Act Spr, 1 SPRAY GUCCI DAILY 08/14/24 Finerenone (Kerendia) 10 Mg Tab, PO 08/14/24 Naproxen (NAPROSYN TABLET) 500 Mg Tb, PO 08/14/24 Atorvastatin Calcium (ATORVASTATIN CALCIUM) 20 Mg Tab, 1 TAB PO DAILY 08/14/24 Fenofibrate (Fenofibrate Micronized) 67 Mg Cap, 1 CAP PO DAILY 08/14/24 Metformin Hydrochloride (Metformin Hcl) 500 Mg Tab, 1 TAB PO BID 08/14/24 Current Medications Current Medications Medications (Trade) Dose Ordered Sig/Natalie Route PRN Reason Start Time Stop Time Status Last Admin Ceftriaxone Sodium 50 ml @ 100 mls/hr DAILY@09 IV 08/15/24 09:00 08/15/24 12:39 DC 08/15/24 09:33 Atorvastatin Calcium (Lipitor) 40 mg HS PO 08/14/24 22:00 08/14/24 22:15 Metoprolol Succinate (Toprol Xl) 25 mg DAILY PO 08/16/24 10:00 Review of Systems Constitutional: No: Fever, Chills, Sweats, Weakness, Malaise, Other Eyes: No: Pain, Vision change, Conjunctivae inflammation, Eyelid inflammation, Other, Redness ENT: No: Ear pain, Ear discharge, Nose pain, Nose discharge, Nose congestion, Mouth pain, Mouth swelling, Throat pain, Throat swelling, Other Respiratory: No: Cough, Dry, Shortness of breath, SOB with exertion, Wheezing, Hemoptysis, Pleuritic Pain, Sputum, Wheezing, Other Cardiovascular: ; No: Chest Pain Palpitations, Orthopnea, Paroxysmal Noc. Dyspnea, Edema, Lt Headedness, Other Gastrointestinal: No: Nausea, Vomiting, Abdominal Pain, Diarrhea, Constipation, Melena, Hematochezia, Other Genitourinary: No Dysuria, No Frequency, No Incontinence, No Hematuria, No Retention, No Other Musculoskeletal: neck pain; No: other, shoulder pain, arm pain, back pain, hand pain, leg pain, foot pain Skin: No: Rash, Lesions, Jaundice, Bruising, Other Neurological: Other (Dizziness, headache.); No: Weakness, Numbness, Incoordination, Change in speech, Confusion, Seizures Vital Signs Vital Signs Date Time Temp Pulse Resp B/P (MAP) Pulse Ox O2 Delivery O2 Flow Rate FiO2 08/15/24 16:45 97.8 68 14 133/75 (94) 97 97.8 08/15/24 08:00 Room Air* 0 21 Physical Exam GENERAL: Awake, alert, oriented. LUNGS: Clear. CARDIOVASCULAR: Heart sounds are good. ABDOMEN: Soft. Labs/Diagnostic Data Labs Test 08/15/24 17:15 08/15/24 14:45 08/15/24 09:37 08/14/24 08:38 Range/Units POC Glucose 86 70-106 mg/dl Troponin I High Sensitivity 90 *H </=54 ng/L White Blood Count 4.8 4.4-10.8 10^3/uL Red Blood Count 4.95 4.5-5.90 10^6/uL Hemoglobin 14.8 13.5-17.5 g/dL Hematocrit 44.7 41.0-53.0 % Mean Corpuscular Volume 90.2 80.0-100.0 fL Mean Corpuscular Hemoglobin 29.9 28.0-32.0 pg Mean Corpuscular Hemoglobin Concent 33.1 32.0-36.0 g/dL Red Cell Distribution Width 15.8 H 11.8-14.3 % Platelet Count 205 140-450 10^3/uL Mean Platelet Volume 9.9 6.9-10.8 fL Neutrophils (%) (Auto) 50.8 37.0-80.0 % Lymphocytes (%) (Auto) 30.9 10.0-50.0 % Monocytes (%) (Auto) 10.8 0.0-12.0 % Eosinophils (%) (Auto) 7.1 H 0.0-7.0 % Basophils (%) (Auto) 0.4 0.0-2.0 % Neutrophils # (Auto) 2.4 1.6-8.6 10 ^3/uL Lymphocytes # (Auto) 1.5 0.4-5.4 10 ^3/uL Monocytes # (Auto) 0.5 0-1.3 10 ^3/uL Eosinophils # (Auto) 0.3 0-0.8 10 ^3/uL Basophils # (Auto) 0 0-0.2 10 ^3/uL Nucleated Red Blood Cells 0.0 % Sodium Level 140 136-145 mmol/L Potassium Level 3.5 3.5-5.1 mmol/L Chloride Level 106 98-107 mmol/L Carbon Dioxide Level 28 20-31 mmol/L Anion Gap 6 5-15 Blood Urea Nitrogen 14 9-23 mg/dL Creatinine 1.65 H 0.700-1.30 mg/dL Glomerular Filtration Rate Calc 47 >90 mL/min BUN/Creatinine Ratio 8.5 L 10.0-20.0 Serum Glucose 138 H 74-106 mg/dL Calcium Level 9.9 8.7-10.4 mg/dL Total Bilirubin 0.6 0.2-1.0 mg/dL Aspartate Amino Transferase (AST) 20 13-40 U/L Alanine Aminotransferase (ALT) 24 7-40 U/L Alkaline Phosphatase 74 46-116 U/L Total Protein 7.7 5.7-8.2 g/dL Albumin 4.4 3.2-4.8 g/dL Hemoglobin A1c 6.2 H <5.7 % A1C Test 08/14/24 07:17 Range/Units Thyroid Stimulating Hormone (TSH) 2.08 0.55-4.78 uIU/mL Urine Opiates Screen Neg NEGATIVE Urine Fentanyl Screen Neg NEGATIVE Urine Barbiturates Screen Neg NEGATIVE Urine Phencyclidine Screen Neg NEGATIVE Urine Amphetamines Screen Neg NEGATIVE Urine Benzodiazepines Screen Neg NEGATIVE Urine Cocaine Screen Neg NEGATIVE Urine Cannabinoids Screen Neg NEGATIVE Assessment Chest pain. Mildly elevated troponins likely type 2 DE. Uncontrolled HTN. Diabetes. CKD. Mild coronary calcifications. Plan/Recommendation I agree with your ongoing assessment and care of plan. Patient has been seen by Emmanuel Pompa NP on my behalf, him and I discussed the plan with the patient. Troponins trending stable. EKG negative for acute ST abnormalities. Recent negative AYAZ stress test. Follow up echo with normal EF. Likely demand ischemia. Continue on aspirin and statin. Restart home BP regimen, up titrate Coreg to 6.25 mg p.o. twice daily. Up titrate as tolerated. May restart on amlodipine as patient was previously taking. Continue aspirin and statin upon discharge in setting of mild coronary calcifications on CT chest. Echo with moderate degree LVH, diastolic dysfunction. LVEF 65%. No significant valvular structural abnormalities. Preserved RV function. Additional plan as per the hospital course. A total of 45 minutes was spent reviewing the patient record, examining the patient, making a diagnostic and therapeutic plan, discussing this plan with medical personnel, following up on diagnostic studies and following the patient for clinical stability excluding any and all procedures. At least 50% of this time was spent in direct, [id number] contact. Plan discussed with: Patient NYHA Physical activity limitations: NA Date of Service: Aug 15, 2024 Billing Provider: FLORENCIO GÓMEZ MD Cardiology Common Codes: [id number] INP/OBS CARE (High), [id number] CARE 30-74 MIN JACK GÓMEZ MD Aug 15, 2024 18:06
[2024-08-16] MEDS ORDERED: METOPROLOL SUCCINATE XL 50 MG TAB PO SCH (10:00)
== END 2024-08-15 21:30 | disposition home or self-care (01) | DRG 199 ==
LOC: ER 02:11 → TELE 07:17 → TELE-WESTW 13:19
DX: I16.0 Hypertensive urgency (principal); I21.A1 Myocardial infarction type 2; L03.115 Cellulitis of right lower limb; E11.22 Type 2 diabetes mellitus with diabetic chronic kidney disease; L03.031 Cellulitis of right toe; E66.9 Obesity, unspecified; E78.5 Hyperlipidemia, unspecified; I25.10 Atherosclerotic heart disease of native coronary artery without angina pectoris; N18.31 Chronic kidney disease, stage 3a; I12.9 Hypertensive chronic kidney disease with stage 1 through stage 4 chronic kidney disease, or unspecified chronic kidney disease; Z80.0 Family history of malignant neoplasm of digestive organs; Z82.3 Family history of stroke; Z82.49 Family history of ischemic heart disease and other diseases of the circulatory system; Z68.30 Body mass index [BMI] 30.0-30.9, adult; Z79.4 Long term (current) use of insulin
CPT/HCPCS: 36415; 71275; 73660; 80053; 80307; 82962; 83036; 84443; 84484; 85025; 93005; 93306; G0378